=== PATIENT | male | born 1950 | race Caucasian/White ===

== ENCOUNTER 2021-10-11 15:09 | Inpatient (IN) | payer MEDICARE ==
[2021-10-11] MEDS ORDERED: Aspirin Chewable 81 MG TAB ONE ×2 (15:45→15:52)
[2021-10-11 16:13] LABS: #Eosinphils 0.1 thou/uL (0.0-0.7); #Lymphocytes 0.8 thou/uL (1.20-3.40); #Monocytes 0.6 thou/uL (0.11-0.59); %Basophils 0.6 % (0.0-1.0); %Eosinophils 1.3 % (0.0-10.0); %Lymphocytes 18.3 % (21.0-51.0); %Monocytes 13.9 % (0.0-10.0); %Neutrophils 65.8 % (42.0-75.0); Hemoglobin 15.3 g/dL (14.0-18.0); Mean Corpuscular HGB CONC 34.1 g/dL (32.0-36.0); Mean Corpuscular Volume 96.7 fL (78.0-98.0); Mean Platelet Volume 9.2 fL (7.4-10.4); Platelet Count 142 thou/uL (130-400); Red Blood Cell (RBC) Count 4.66 mill/uL (4.70-6.10); White Blood Cell (WBC) Count 4.5 thou/uL (4.8-10.8)
[2021-10-11 16:34] LABS: ALT (SGPT) 25 U/L (8-55); AST (SGOT) 23 U/L (5-34); Alkaline Phosphatase 74 U/L (40-110); Anion Gap 18 mmol/L (10-20); BUN (Urea Nitrogen) 16 mg/dL (8.4-25.7); Bilirubin, Total 1.3 mg/dL (0.2-1.2); Calc. Creatinine Clearance 0 mL/min (70-130); Calcium 8.7 mg/dL (7.8-10.44); Carbon Dioxide 20 mmol/L (23-31); Chloride 96 mmol/L (98-107); Glucose 147 mg/dL (83-110); Potassium 3.7 mmol/L (3.5-5.1); Sodium 130 mmol/L (136-145)
[2021-10-11] MEDS ORDERED: Dextrose 5% in Water 1,000 ML IV PRN (18:03)
[2021-10-11] MEDS ORDERED: HumaLOG 300 UNITS/3 ML VIAL SC PRN ×2 (18:03)
[2021-10-11] MEDS ORDERED: Dextrose 50% Abboject 50 ML SYRINGE SLOW IVP PRN (18:03)
[2021-10-11] MEDS ORDERED: Senokot S 8.6-50 MG TAB PO PRN (18:06)
[2021-10-11] MEDS ORDERED: Acetaminophen 325 MG TAB PO PRN (18:06)
[2021-10-11] MEDS ORDERED: Ondansetron PF 4 MG/2 ML Vial IVP PRN (18:06)
[2021-10-11] MEDS ORDERED: Ondansetron ODT 4 MG TAB PO PRN (18:06)
[2021-10-11 18:54] LABS: Magnesium 1.7 mg/dL (1.6-2.6)
[2021-10-11] MEDS ORDERED: hydrALAZINE 20 MG/ML VIAL SLOW IVP PRN (19:48)
[2021-10-11 22:18] VITALS: BMI 27.6
[2021-10-11 22:20] LABS: Anion Gap 12 mmol/L (10-20); BUN (Urea Nitrogen) 14 mg/dL (8.4-25.7); Calc. Creatinine Clearance 81 mL/min (70-130); Calcium 8.3 mg/dL (7.8-10.44); Carbon Dioxide 27 mmol/L (23-31); Chloride 94 mmol/L (98-107); Glucose 176 mg/dL (83-110); Potassium 3.4 mmol/L (3.5-5.1); Sodium 130 mmol/L (136-145)
[2021-10-11] MEDS ORDERED: FLU VACC QS2021-22(65YR UP)/PF 240 MCG/0.7 ML SYRINGE IM ONE (22:30)
[2021-10-11] MEDS: Sodium Chloride 0.9% 1,000 ML IV SCH (22:41)
[2021-10-11] MEDS ORDERED: Atorvastatin Calcium 40 MG TAB PO SCH (22:45)
[2021-10-11] MEDS ORDERED: Potassium Chloride 20 MEQ TAB PO SCH (23:24)
[2021-10-11] MEDS ORDERED: Magnesium Sulfate 4 GM in Sodium Chloride 0.9% 250 ML 250 ML IVPB SCH (23:24)
[2021-10-11 23:39] LABS: SARS-CoV-2 NAA Rapid Test DETECTED (NotDetected)
[2021-10-12 04:24] LABS: #Eosinphils 0.1 thou/uL (0.0-0.7); #Lymphocytes 1.4 thou/uL (1.20-3.40); #Monocytes 0.8 thou/uL (0.11-0.59); #Neutrophils 3.2 thou/uL (1.40-6.50); %Basophils 0.3 % (0.0-1.0); %Eosinophils 2.1 % (0.0-10.0); %Lymphocytes 25.5 % (21.0-51.0); %Monocytes 14.1 % (0.0-10.0); Mean Corpuscular HGB CONC 35.8 g/dL (32.0-36.0); Mean Corpuscular Hemoglobin 34.2 pg (27.0-31.0); Mean Corpuscular Volume 95.6 fL (78.0-98.0); Mean Platelet Volume 8.9 fL (7.4-10.4); Platelet Count 143 thou/uL (130-400); RBC Distribution Width 10.9 % (11.5-14.5); White Blood Cell (WBC) Count 5.5 thou/uL (4.8-10.8)
[2021-10-12 04:46] LABS: Anion Gap 12 mmol/L (10-20); BUN (Urea Nitrogen) 13 mg/dL (8.4-25.7); Calc. Creatinine Clearance 96 mL/min (70-130); Calcium 8.5 mg/dL (7.8-10.44); Carbon Dioxide 26 mmol/L (23-31); Chloride 102 mmol/L (98-107); Glucose 126 mg/dL (83-110); Magnesium 2.8 mg/dL (1.6-2.6); Potassium 3.7 mmol/L (3.5-5.1); Sodium 136 mmol/L (136-145)
[2021-10-12] MEDS: Aspirin 81 mg Enteric Coated Tablet PO SCH (09:14)
[2021-10-12] MEDS: Ascorbic Acid 500 mg Chewable Tablet PO SCH (09:14)
[2021-10-12] MEDS: Zinc Sulfate 220 MG CAP PO SCH (09:14)
[2021-10-12] MEDS ORDERED: metFORMIN 500 MG TAB PO SCH (10:00)
[2021-10-12] MEDS: Sodium Chloride 0.9% 1,000 ML IV SCH (12:15)
[2021-10-12] MEDS: Atorvastatin Calcium 40 MG TAB PO SCH (21:12)
[2021-10-12] MEDS: metFORMIN 500 MG TAB PO SCH (21:12)
[2021-10-13 00:40] LABS: Bacteria/HPF None Seen HPF (None Seen); Bilirubin Negative (Negative); Blood, Urine Negative (Negative); Clarity Clear (Clear); Glucose, Urine (Dipstick) Normal (Negative); Ketone, Urine Negative (Negative); Leukocyte Negative Leu/uL (Negative); Nitrite Negative (Negative); Protein, Urine (Dipstick) Negative (Neg-Trace); RBC/HPF 0-3 HPF (0-3); Specific Gravity, Urine 1.008 (1.002-1.036); Squamous Epithelial None Seen HPF (0-3); Urobilinogen Normal mg/dL (Less than 2); WBC/HPF 0-3 HPF (0-3)
[2021-10-13 05:21] LABS: #Eosinphils 0.2 thou/uL (0.0-0.7); #Lymphocytes 1.5 thou/uL (1.20-3.40); #Monocytes 0.6 thou/uL (0.11-0.59); #Neutrophils 1.9 thou/uL (1.40-6.50); %Basophils 0.6 % (0.0-1.0); %Eosinophils 4.5 % (0.0-10.0); %Lymphocytes 35.2 % (21.0-51.0); %Monocytes 13.9 % (0.0-10.0); %Neutrophils 45.9 % (42.0-75.0); Hemoglobin 12.8 g/dL (14.0-18.0); Mean Corpuscular HGB CONC 33.5 g/dL (32.0-36.0); Mean Corpuscular Volume 95.8 fL (78.0-98.0); Mean Platelet Volume 8.8 fL (7.4-10.4); Platelet Count 140 thou/uL (130-400); RBC Distribution Width 10.9 % (11.5-14.5); White Blood Cell (WBC) Count 4.2 thou/uL (4.8-10.8)
[2021-10-13 05:36] LABS: Anion Gap 11 mmol/L (10-20); BUN (Urea Nitrogen) 11 mg/dL (8.4-25.7); Calc. Creatinine Clearance 113 mL/min (70-130); Calcium 8.3 mg/dL (7.8-10.44); Carbon Dioxide 24 mmol/L (23-31); Chloride 105 mmol/L (98-107); Glucose 109 mg/dL (83-110); Potassium 3.6 mmol/L (3.5-5.1); Sodium 136 mmol/L (136-145)
[2021-10-13] MEDS: Zinc Sulfate 220 MG CAP PO SCH (08:09)
[2021-10-13] MEDS: Aspirin 81 mg Enteric Coated Tablet PO SCH (08:09)
[2021-10-13] MEDS: metFORMIN 500 MG TAB PO SCH ×2 (08:09→20:28)
[2021-10-13] MEDS: Ascorbic Acid 500 mg Chewable Tablet PO SCH (08:09)
[2021-10-13] MEDS ORDERED: Hydrochlorothiazide 25 MG TAB PO SCH (09:45)
[2021-10-13] MEDS ORDERED: Dronedarone HCl 400 MG TAB PO SCH (09:45)
[2021-10-13] MEDS ORDERED: Losartan 25 MG TAB PO SCH (10:15)
[2021-10-13] MEDS: Dronedarone HCl 400 MG TAB PO SCH (17:54)
[2021-10-13] MEDS: Atorvastatin Calcium 40 MG TAB PO SCH (20:28)
[2021-10-14] MEDS: Dronedarone HCl 400 MG TAB PO SCH ×2 (07:57→16:31)
[2021-10-14] MEDS: Zinc Sulfate 220 MG CAP PO SCH (07:58)
[2021-10-14] MEDS: Ascorbic Acid 500 mg Chewable Tablet PO SCH (07:58)
[2021-10-14] MEDS: Aspirin 81 mg Enteric Coated Tablet PO SCH (07:58)
[2021-10-14] MEDS: metFORMIN 500 MG TAB PO SCH (07:58)
[2021-10-14] MEDS ORDERED: Losartan 25 MG TAB PO SCH (09:00)
[2021-10-14] MEDS ORDERED: Hydrochlorothiazide 25 MG TAB PO SCH (09:00)
[2021-10-14] MEDS ORDERED: Olmesartan 5 MG TAB PO SCH (09:00)
[2021-10-14 16:19] VITALS: BP 167/94; TEMP 97.8
== END 2021-10-14 16:50 | disposition home or self-care (01) | DRG 308 ==
LOC: ERS 15:09 → 2NO 17:19 → 2SE 10-12 11:24 → 2SW 10-12 18:00
PROVIDERS: ADMIT Internal Medicine; ATTEND Internal Medicine
PROC: 8E0ZXY6 Isolation (ICD-10-PCS; principal; 2021-10-11)
DX: R00.1 Bradycardia, unspecified (principal); U07.1 COVID-19; E87.1 Hypo-osmolality and hyponatremia; I48.20 Chronic atrial fibrillation, unspecified; E80.6 Other disorders of bilirubin metabolism; E78.5 Hyperlipidemia, unspecified; I12.9 Hypertensive chronic kidney disease with stage 1 through stage 4 chronic kidney disease, or unspecified chronic kidney disease; E11.22 Type 2 diabetes mellitus with diabetic chronic kidney disease; D72.818 Other decreased white blood cell count; N18.2 Chronic kidney disease, stage 2 (mild); I08.1 Rheumatic disorders of both mitral and tricuspid valves; E87.6 Hypokalemia; E83.42 Hypomagnesemia; Z79.899 Other long term (current) drug therapy; Z79.82 Long term (current) use of aspirin; Z79.84 Long term (current) use of oral hypoglycemic drugs
CPT/HCPCS: 36415; 36416; 71045; 80048; 80053; 81001; 83735; 84443; 84484; 85025; 85379; 86140; 93005; 93306; 93880; J3475; J7050; Q0162; U0002